=== PATIENT | male | born 1995 | race African-American/Black ===

== ENCOUNTER 2018-06-26 21:24 | Emergency (ER) | payer OTHER ==
[~2018-06-26] VITALS: Ht 177.8 cm; Wt 88.2 kg
[~2018-06-26 21:24] MED LIST: AMOXICILLIN500 MG PO; DENIES CURRENT MEDS; MUPIROCIN2 % EX; NAPROSYN500 MG PO; NO MEDS
[2018-06-26] MEDS ORDERED: AMOXICILLIN500 MG PO (22:38)
[2018-06-26] MEDS ORDERED: NAPROSYN500 MG PO (22:38)
[2018-06-26 22:40] VITALS: BP 136/78
== END 2018-06-26 22:40 | disposition home or self-care (01) | DRG 103 ==
LOC: ED 21:24
DX: R51 Headache (principal); J02.9 Acute pharyngitis, unspecified

== ENCOUNTER 2018-09-12 22:11 | Emergency (ER) | payer OTHER ==
[~2018-09-12] VITALS: Ht 177.8 cm; Wt 89.0 kg
[2018-09-12] MEDS ORDERED: AMOXICILLIN500 MG PO (22:36)
[2018-09-12] MEDS ORDERED: TRAMADOL HCL50 MG PO (22:36)
[2018-09-12] MEDS ORDERED: MOTRIN800 MG PO (22:36)
[2018-09-12 22:45] VITALS: BP 122/77
== END 2018-09-12 22:45 | disposition home or self-care (01) | DRG 159 ==
LOC: ED 22:11
DX: K01.1 Impacted teeth (principal); K04.7 Periapical abscess without sinus; K08.89 Other specified disorders of teeth and supporting structures; Z11.4 Encounter for screening for human immunodeficiency virus [HIV]; Z11.3 Encounter for screening for infections with a predominantly sexual mode of transmission; Z20.2 Contact with and (suspected) exposure to infections with a predominantly sexual mode of transmission; R53.83 Other fatigue; Z11.59 Encounter for screening for other viral diseases; Z13.6 Encounter for screening for cardiovascular disorders

== ENCOUNTER 2018-09-16 16:52 | Emergency (ER) | payer OTHER ==
[~2018-09-16] VITALS: Ht 177.8 cm; Wt 110.0 kg
[~2018-09-16 16:52] MED LIST changes: +MOTRIN800 MG PO; +TRAMADOL HCL50 MG PO
[2018-09-16 17:36] VITALS: BP 137/79
== END 2018-09-16 17:36 | disposition home or self-care (01) | DRG 605 ==
LOC: ED 16:52
DX: S50.12XA Contusion of left forearm, initial encounter (principal); V49.40XA Driver injured in collision with unspecified motor vehicles in traffic accident, initial encounter

== ENCOUNTER 2019-07-03 22:18 | Emergency (ER) | payer OTHER ==
[2019-07-03] MEDS ORDERED: BROMFED D1 PO (23:06)
[2019-07-03 23:27] VITALS: BP 125/74
== END 2019-07-03 23:27 | disposition home or self-care (01) | DRG 153 ==
LOC: ED 22:18
DX: J06.9 Acute upper respiratory infection, unspecified (principal)

== ENCOUNTER 2020-08-06 21:29 | Emergency (ER) | payer OTHER ==
[~2020-08-06 21:29] MED LIST changes: +BROMFED D1 PO
[2020-08-06] MEDS ORDERED: LAMISIL AT1 % EX (21:52)
[2020-08-06 21:58] VITALS: BP 123/78
== END 2020-08-06 21:59 | disposition home or self-care (01) | DRG 607 ==
LOC: ED 21:29
DX: B35.4 Tinea corporis (principal)

== ENCOUNTER 2022-03-14 15:51 | Emergency (ER) | payer BC ==
[~2022-03-14] VITALS: Ht 175.3 cm; Wt 93.0 kg
[~2022-03-14 15:51] MED LIST changes: +LAMISIL AT1 % EX
[2022-03-14 16:16] VITALS: BP 129/85
[2022-03-14 16:30] VITALS: BP 130/85
[2022-03-14] MEDS ORDERED: AMMONIUM LACTATE12 % EX (16:32)
[2022-03-14 16:34] VITALS: BP 130/85
== END 2022-03-14 16:42 | disposition home or self-care (01) | DRG 607 ==
LOC: ED 15:51
DX: L85.8 Other specified epidermal thickening (principal)